=== PATIENT | female | born 1925 | race Caucasian/White ===

== ENCOUNTER 2016-07-30 10:05 | Inpatient (IN) | payer MEDICARE, OTHER ==
[~2016-07-30] VITALS: Ht 149.9 cm; Wt 49.9 kg
[2016-07-30 10:53] LABS: BASOPHIL % 0.5 % (0-2); PLATELET COUNT 140 x10^3mcL (130-400); RED CELL DISTRIBUTION WIDTH 13.9 % (11.5-14.5)
[2016-07-30 11:21] LABS: CALCIUM 8.8 mg/dL (8.5-10.1); CARBON DIOXIDE 29.5 mmol/L (21-32); CHLORIDE SERUM 105 mmol/L (98-107); CREATININE SERUM 0.9 mg/dL (0.6-1.0); GLUCOSE SERUM 104 mg/dL (74-106); POTASSIUM SERUM 4.6 mmol/L (3.5-5.1); SODIUM SERUM 140 mmol/L (136-145)
[2016-07-30 11:26] LABS: ALBUMIN 3.5 g/dL (3.4-5.0); ALKALINE PHOSPHATASE 86 U/L (46-116); ALT/SGPT 20 U/L (14-59); AST/SGOT 19 U/L (15-37); BILIRUBIN TOTAL 0.35 mg/dL (0.20-1.00); TOTAL PROTEIN, SERUM 7.1 g/dL (6.4-8.2)
[2016-07-30 13:42] LABS: T3 TOTAL 0.76 ng/mL
[2016-07-30 13:57] LABS: CHOLESTEROL/HDL RATIO 3.5; MAGNESIUM 2.5 mg/dL (1.8-2.4); PHOSPHOROUS 3.7 mg/dL (2.5-4.9)
[2016-07-30 14:12] VITALS: BP 159/69
[2016-07-30 14:35] LABS: FREE T4 1.03 ng/dL (0.76-1.46); FREE THYROXINE INDEX 2.9 ug/dL (1.4-4.5); T4(THYROXINE) 7.8 ug/dL (4.7-13.3)
[2016-07-30] MEDS ORDERED: BACLOFEN10 MG PO (16:02)
[2016-07-30] MEDS ORDERED: RAN500A PO (16:03)
[2016-07-30] MEDS ORDERED: D-20001 TAB PO (16:05)
[2016-07-30 16:08] LABS: microscopic required? YES; urine erythrocyte TRACE (NEGATIVE)
[2016-07-30] MEDS ORDERED: SENNA PLUS1 TAB PO (16:13)
[2016-07-30 17:14] VITALS: BP 133/54
[2016-07-30 21:28] VITALS: BP 134/63
[2016-07-31 05:51] VITALS: BP 113/52
[2016-07-31 09:16] VITALS: BP 128/49
[2016-07-31 12:21] LABS: PLATELET COUNT 118 x10^3mcL (130-400); RED CELL DISTRIBUTION WIDTH 13.9 % (11.5-14.5)
[2016-07-31 12:23] LABS: MONOCYTE 10 % (0-7); SEGMENTED NEUTROPHILS 68 % (37-75)
[2016-07-31 12:35] LABS: CALCIUM 8.4 mg/dL (8.5-10.1); CARBON DIOXIDE 30.3 mmol/L (21-32); CHLORIDE SERUM 108 mmol/L (98-107); CREATININE SERUM 0.7 mg/dL (0.6-1.0); GLUCOSE SERUM 96 mg/dL (74-106); POTASSIUM SERUM 3.9 mmol/L (3.5-5.1); SODIUM SERUM 144 mmol/L (136-145)
[2016-07-31 12:49] VITALS: BP 153/56
[2016-07-31 12:51] LABS: rbc morphology (normal/abnorm) NORMAL (NORMAL)
[2016-07-31 17:45] VITALS: BP 122/55
[2016-07-31 21:18] VITALS: BP 119/50
[2016-08-01 05:21] VITALS: BP 99/35
[2016-08-01 06:06] LABS: BASOPHIL % 0.4 % (0-2)
[2016-08-01 06:44] LABS: PLATELET COUNT 95 x10^3mcL (130-400)
[2016-08-01 07:30] VITALS: BP 119/47
[2016-08-01 12:15] VITALS: BP 116/77
[2016-08-01 13:01] LABS: CALCIUM 8.1 mg/dL (8.5-10.1); CARBON DIOXIDE 29.8 mmol/L (21-32); CHLORIDE SERUM 106 mmol/L (98-107); CREATININE SERUM 0.9 mg/dL (0.6-1.0); GLUCOSE SERUM 126 mg/dL (74-106); POTASSIUM SERUM 4.3 mmol/L (3.5-5.1); SODIUM SERUM 142 mmol/L (136-145)
[2016-08-01 14:15] VITALS: BP 100/36
[2016-08-01 16:50] VITALS: BP 107/47
[2016-08-01 21:28] VITALS: BP 118/45
[2016-08-02 06:04] VITALS: BP 101/41
[2016-08-02 06:50] LABS: CALCIUM 8.4 mg/dL (8.5-10.1); CARBON DIOXIDE 25.9 mmol/L (21-32); CHLORIDE SERUM 111 mmol/L (98-107); CREATININE SERUM 0.8 mg/dL (0.6-1.0); GLUCOSE SERUM 96 mg/dL (74-106); MAGNESIUM 2.3 mg/dL (1.8-2.4); PHOSPHOROUS 3.6 mg/dL (2.5-4.9); POTASSIUM SERUM 4.2 mmol/L (3.5-5.1); SODIUM SERUM 143 mmol/L (136-145)
[2016-08-02 08:11] LABS: BASOPHIL % 0.6 % (0-2); RED CELL DISTRIBUTION WIDTH 14.3 % (11.5-14.5)
[2016-08-02 08:30] LABS: PLATELET COUNT 84 x10^3mcL (130-400)
[2016-08-02 08:43] VITALS: BP 91/39
[2016-08-02 12:57] VITALS: BP 104/42
[2016-08-02 13:35] VITALS: BP 96/47
[2016-08-02 17:26] VITALS: BP 107/48
[2016-08-02 20:54] VITALS: BP 110/53
[2016-08-03 05:49] VITALS: BP 117/46
[2016-08-03 06:27] LABS: BASOPHIL % 0.6 % (0-2); RED CELL DISTRIBUTION WIDTH 14.3 % (11.5-14.5)
[2016-08-03 06:45] LABS: PLATELET COUNT 107 x10^3mcL (130-400)
[2016-08-03 08:42] VITALS: BP 93/38
[2016-08-03 18:00] VITALS: BP 104/46
[2016-08-03 21:41] VITALS: BP 110/46
[2016-08-04 06:04] VITALS: BP 121/49
[2016-08-04] MEDS ORDERED: ACETAMINOPHEN-H1 TA1 PO (09:07)
[2016-08-04 13:15] VITALS: BP 96/48
[2016-08-04] MEDS ORDERED: COL100 PO (16:26)
[2016-08-04] MEDS ORDERED: TYL325 PO (16:26)
[2016-08-04] MEDS ORDERED: SEN PO (16:27)
[2016-08-04] MEDS ORDERED: ZOFI IV (16:27)
[2016-08-04] MEDS ORDERED: PRI20 PO (16:27)
== END 2016-08-04 19:16 | DRG 480 ==
LOC: ED 10:05 → DU 12:56 → MU 12:56 → DU 13:56 → MU 08-02 18:33
PROVIDERS: Emergency Medicine; Family Medicine; Neuromusculoskeletal Medicine, Sports Medicine; ADMIT Family Medicine
PROC: 7W01X7Z Osteopathic Treatment of Cervical Region using Muscle Energy-Isometric Forces (ICD-10-PCS; 2016-07-31)
PROC: 7W02X7Z Osteopathic Treatment of Thoracic Region using Muscle Energy-Isometric Forces (ICD-10-PCS; 2016-07-31)
PROC: 0QS704Z Reposition Left Upper Femur with Internal Fixation Device, Open Approach (ICD-10-PCS; principal; 2016-07-31 13:00)
DX: M80.851A Other osteoporosis with current pathological fracture, right femur, initial encounter for fracture (principal); N17.0 Acute kidney failure with tubular necrosis; M16.11 Unilateral primary osteoarthritis, right hip; M99.01 Segmental and somatic dysfunction of cervical region; M99.02 Segmental and somatic dysfunction of thoracic region; D69.6 Thrombocytopenia, unspecified; D64.9 Anemia, unspecified; E83.41 Hypermagnesemia; E78.5 Hyperlipidemia, unspecified; Z68.22 Body mass index [BMI] 22.0-22.9, adult
CPT/HCPCS: 76001; 82962; 83880; 84439; 97110-GP; 97116-GP; 97530-GP; C1713; G0480; J0690; J1644; J2270; J2704; J3010; J3490; J7030; J7040; J7120

== ENCOUNTER → 2016-10-07 | Outpatient (CLI) | payer MEDICARE, OTHER ==
[~2016-10-07] MED LIST: ACETAMINOPHEN-H1 TA1 PO; BACLOFEN10 MG PO; COL100 PO; D-20001 TAB PO; PRI20 PO; RAN500A PO; SEN PO; SENNA PLUS1 TAB PO; TYL325 PO; ZOFI IV
== END | disposition home or self-care (01) ==
LOC: RD 10:52
DX: M25.511 Pain in right shoulder (principal); M25.551 Pain in right hip; M25.562 Pain in left knee; M25.561 Pain in right knee

== ENCOUNTER 2017-01-30 16:37 | Inpatient (IN) | payer MEDICARE, OTHER ==
[~2017-01-30] VITALS: Ht 149.9 cm; Wt 53.1 kg
[2017-01-30 17:20] LABS: BASOPHIL % 0.5 % (0-2); PLATELET COUNT 169 x10^3mcL (130-400); RED CELL DISTRIBUTION WIDTH 14.3 % (11.5-14.5)
[2017-01-30 17:23] LABS: CALCIUM 9.3 mg/dL (8.5-10.1); CARBON DIOXIDE 29.7 mmol/L (21-32); CHLORIDE SERUM 101 mmol/L (98-107); GLUCOSE SERUM 100 mg/dL (74-106); POTASSIUM SERUM 3.8 mmol/L (3.5-5.1); SODIUM SERUM 138 mmol/L (136-145)
[2017-01-30 17:27] LABS: ALKALINE PHOSPHATASE 86 U/L (46-116); ALT/SGPT 16 U/L (14-59); AST/SGOT 16 U/L (15-37); BILIRUBIN TOTAL 0.4 mg/dL (0.20-1.00); TOTAL PROTEIN, SERUM 7.5 g/dL (6.4-8.2)
[2017-01-30] MEDS ORDERED: TRAMADOL HCL50 MG PO (17:35)
[2017-01-30 17:36] LABS: ALBUMIN 3.3 g/dL (3.4-5.0)
[2017-01-30] MEDS ORDERED: ALL DAY ALLERGY10 M2 PO (17:36)
[2017-01-30 18:05] LABS: UA SPECIFIC GRAVITY <=1.005 (1.005-1.035); microscopic required? YES; urine erythrocyte 1+ (NEGATIVE)
[2017-01-30 19:26] LABS: CHOLESTEROL/HDL RATIO 4.1; MAGNESIUM 2.3 mg/dL (1.8-2.4)
[2017-01-30 19:39] LABS: FREE T4 1.1 ng/dL (0.76-1.46); FREE THYROXINE INDEX 2.8 ug/dL (1.4-4.5); T4(THYROXINE) 8.3 ug/dL (4.7-13.3)
[2017-01-30 20:09] LABS: T3 TOTAL 0.88 ng/mL
[2017-01-30 20:11] VITALS: BP 139/57
[2017-01-30 20:16] VITALS: Ht 149.9 cm; Wt 53.1 kg
[2017-01-30 21:43] VITALS: BP 139/57
[2017-01-31 02:25] VITALS: BP 139/573
[2017-01-31 05:38] VITALS: BP 115/68
[2017-01-31 07:56] LABS: BASOPHIL % 0.5 % (0-2); CARBON DIOXIDE 29.3 mmol/L (21-32); CHLORIDE SERUM 107 mmol/L (98-107); CREATININE SERUM 0.9 mg/dL (0.6-1.0); GLUCOSE SERUM 83 mg/dL (74-106); MAGNESIUM 2.1 mg/dL (1.8-2.4); PHOSPHOROUS 3.9 mg/dL (2.5-4.9); PLATELET COUNT 153 x10^3mcL (130-400); RED CELL DISTRIBUTION WIDTH 14.4 % (11.5-14.5); SODIUM SERUM 143 mmol/L (136-145)
[2017-01-31 14:00] VITALS: BP 137/55
[2017-01-31 18:00] VITALS: BP 144/52
[2017-01-31 21:33] VITALS: BP 99/52
[2017-02-01 05:58] VITALS: BP 111/37
[2017-02-01 06:29] LABS: CALCIUM 8.6 mg/dL (8.5-10.1); CARBON DIOXIDE 27.8 mmol/L (21-32); CHLORIDE SERUM 108 mmol/L (98-107); CREATININE SERUM 0.8 mg/dL (0.6-1.0); GLUCOSE SERUM 85 mg/dL (74-106); POTASSIUM SERUM 3.9 mmol/L (3.5-5.1); SODIUM SERUM 146 mmol/L (136-145)
[2017-02-01 06:32] LABS: BASOPHIL % 0.6 % (0-2); PLATELET COUNT 139 x10^3mcL (130-400); RED CELL DISTRIBUTION WIDTH 14.5 % (11.5-14.5)
[2017-02-01 10:24] VITALS: BP 111/42
[2017-02-01 12:38] VITALS: BP 111/42
== END 2017-02-01 17:15 | disposition home health service (06) | DRG 205 ==
LOC: ED 16:37 → DU 18:37
PROVIDERS: Emergency Medicine; ADMIT Family Medicine Sports Medicine
DX: M94.0 Chondrocostal junction syndrome [Tietze] (principal); N17.0 Acute kidney failure with tubular necrosis; E44.0 Moderate protein-calorie malnutrition; S09.90XA Unspecified injury of head, initial encounter; R31.9 Hematuria, unspecified; M19.90 Unspecified osteoarthritis, unspecified site; M81.0 Age-related osteoporosis without current pathological fracture; M40.209 Unspecified kyphosis, site unspecified; G93.89 Other specified disorders of brain; M43.10 Spondylolisthesis, site unspecified; I07.1 Rheumatic tricuspid insufficiency; W18.39XA Other fall on same level, initial encounter; Y92.038 Other place in apartment as the place of occurrence of the external cause
CPT/HCPCS: 83880; 84439; 85378; 94150; 97110-GP; 97530-GP; J7030; J7620; Q0092; Q9967